=== PATIENT | female | born 1950 | race Caucasian/White ===

== ENCOUNTER 2017-03-09 14:42 | Emergency (ER) | payer MEDICARE ==
[2017-03-09 14:58] VITALS: BP 142/78
--- NOTE | 2017-03-09 15:11 | UC ---
UC General HPI - HPI Summary HPI Summary: complaint of rash on her right arm that started 2 days ago noticed she had 2 bug bites on her arm in the morning last night her arm started to get red swollen and achy denies fever and chills took some benadryl for symptoms last night without relief - History of Current Complaint Chief Complaint: UCSkin Stated Complaint: RT ARM SKIN COMPLAINT Time Seen by Provider: 03/09/17 14:56 Hx Obtained From: Patient - Allergy/Home Medications Allergies/Adverse Reactions: Allergies Allergy/AdvReac Type Severity Reaction Status Date / Time No Known Allergies Allergy Verified 03/09/17 14:58 Home Medications: Home Medications Ascorbic Acid TAB* [Vitamin C TAB*] 500 mg PO DAILY 03/09/17 [History Confirmed 03/09/17] Atorvastatin* [Lipitor 40 MG*] 40 mg PO 1700 03/09/17 [History Confirmed ] Calcium 500 mg PO DAILY 03/09/17 [History Confirmed 03/09/17] Cholecalciferol [Vitamin D] 1,000 unit PO DAILY 03/09/17 [History Confirmed ] Cyanocobalamin [Vitamin B-12] 100 mcg PO DAILY 03/09/17 [History Confirmed 03/09] Magnesium 250 mg PO DAILY 03/09/17 [History Confirmed 03/09/17] Multiple Vitamin [Multiple Vitamins] 1 tab PO DAILY 03/09/17 [History Confirmed 03/09/17] Webster-3 Fatty Acids [Fish Oil] 1,000 mg PO DAILY 03/09/17 [History Confirmed ] PMH/Surg Hx/FS Hx/Imm Hx Previously Healthy: Yes Endocrine History: Dyslipidemia Cardiovascular History: Hypertension Neurological History: Seizures - Surgical History Surgical History: Yes Surgery Procedure, Year, and Place: RODS IN BOTH FEMURS 09/2013 - Family History Known Family History: Negative: Cardiac Disease, Hypertension, Diabetes - Social History Occupation: Retired Lives: With Family Alcohol Use: Weekly Alcohol Amount: WINE Substance Use Type: None Smoking Status (MU): Never Smoked Tobacco Review of Systems Constitutional: Negative Skin: Rash Eyes: Negative ENT: Negative Respiratory: Negative Cardiovascular: Negative Gastrointestinal: Negative Genitourinary: Negative Motor: Negative Neurovascular: Negative Musculoskeletal: Negative Neurological: Negative Psychological: Negative All Other Systems Reviewed And Are Negative: Yes Physical Exam Triage Information Reviewed: Yes Appearance: No Pain Distress, Well-Nourished Vital Signs: Initial Vital Signs Temp 98.3 F 03/09/17 14:53 Pulse 77 03/09/17 14:53 Resp 14 03/09/17 14:53 BP 142/78 03/09/17 14:53 Pulse Ox 99 03/09/17 14:53 Vital Signs Reviewed: Yes Eyes: Positive: Conjunctiva Clear ENT: Positive: Pharynx normal, TMs normal Neck: Positive: No Lymphadenopathy Respiratory: Positive: Lungs clear, Normal breath sounds, No respiratory distress, No accessory muscle use Cardiovascular: Positive: RRR, No Murmur, Pulses Normal Abdomen Description: Positive: Nontender, Soft Bowel Sounds: Positive: Present Musculoskeletal Exam: Normal Neurological: Positive: Alert Psychological Exam: Normal Skin: Positive: rashes - R forearm with 6x20 cm area of erythema and edema warm to touch Course/Dx - Course Course Of Treatment: exam completed. area of cellulitis marked with marker. d/ t size of area with start on bactrim. discussed s/s of when to seek emergent care and pt states understanding - Differential Dx - Multi-Symptom Differential Diagnoses: Other - cellulitis contact dermatitis Provider Diagnoses: cellulitis Discharge - Discharge Plan Condition: Stable Disposition: HOME Prescriptions: Sulfamethox/Trimethoprim DS* [Bactrim DS 800/160 TAB*] 1 tab PO BID #14 tab Patient Education Materials: Cellulitis (ED) Referrals: Non Staff,Doctor [Primary Care Provider] - Additional Instructions: CELLULITIS What is Cellulitis? Cellulitis is a bacterial infection of the skin and, sometimes, of the tissues beneath the skin. The skin normally has many types of bacteria on it, but intact skin is an effective barrier that keeps bacteria from entering and growing within the body. When there is a break in the skin, bacteria can enter the body and grow there, causing infection. The infection usually affects outer layers of the skin first, and then spreads deeper into body tissues. Cellulitis can affect any area of the body covered by skin, but it is most common on the face or lower part of the legs. Symptoms Might Include: Skin redness that increases in size as the infection spreads Tight, glossy, "stretched" appearance of the skin Pain or tenderness of the area The affected area may be warm or hot to the touch A thin red line (along a vein) from the cellulitis toward the heart Fever Chills, shaking Muscle aches pains Joint stiffness because of swelling around a joint Treatment Recommendations: The healthcare provider may have prescribed an antibiotic medicine. The medicine should be taken until it is completely gone, even if you are feeling better. If you stop taking the medicine early, the infection may not be completely gone, and the medication may not work the next time. If the infection is on your arm or leg, keep it elevated. You may use warm, wet compresses to relieve the pain and help healing. Soak a clean cloth in warm water, wring it out a little, and apply it to the affected site. Leave the soak in place for 15 minutes and repeat often throughout the day. Rest until the fever is gone and the pain and redness have lessened. You may take ibuprofen (Motrin, Advil), or acetaminophen (Tylenol) for pain. These will help ease some of the symptoms but will not cure the infection. Call Your Doctor or Return Here IF: Your fever does not go down with treatment, or it increases to more than 101 F. You are not starting to get better with the treatment within 24 to 36 hours. You have increasing pain, swelling, or chills. You feel drowsy and lethargic, or you have vomiting or diarrhea. You find the redness is spreading or there are red streaks coming from the infected area. The joint or bone under the infected skin becomes painful after the skin has started to heal. You have any new symptoms that worry you. Your blood pressure is elevated. Please contact your primary care provider within 1 -4 weeks for further evaluation.
== END 2017-03-09 15:27 | disposition home or self-care (01) ==
LOC: UCCORT 14:42
DX: L03.113 Cellulitis of right upper limb (principal); E78.5 Hyperlipidemia, unspecified; I10 Essential (primary) hypertension; R56.9 Unspecified convulsions
CPT/HCPCS: 99212; G0463

== ENCOUNTER 2018-01-25 06:37 | Day surgery (SDC) | payer MEDICARE ==
[~2018-01-25 06:37] MED LIST: Buffered Lidocaine 0.9% SYRIN* 5 ML/SYR SYRINGE INTRADERM ONE; Dexamethasone IV* 4 MG/ML 1 ML (4 MG) IV SLOW PU ONE; Metoclopramide IV* 5 MG/ML 2 ML VIAL IV SLOW PU ONE; Metoclopramide IV* 5 MG/ML 2 ML VIAL ONE; Sodium Citrate/Citric Acid* 15 ML UDC ONE; Sodium Citrate/Citric Acid* 15 ML UDC PO ONE
[2018-01-25] MEDS ORDERED: ceFAZolin 2 GM PREMIX (*) 0 GM/0 ML BAG IVPB ONE (06:48)
[2018-01-25] MEDS ORDERED: Dexamethasone IV* 4 MG/ML 1 ML (4 MG) ONE (06:57)
[2018-01-25] MEDS ORDERED: fentaNYL* 50 MCG/ML 2 ML VIAL (100 MCG VIAL) ONE (07:02)
[2018-01-25] MEDS ORDERED: Propofol* 10 MG/ML 20 ML BTL IV PUSH ONE (07:03)
[2018-01-25] MEDS ORDERED: Lidocaine 2% PF * 5 ML VIAL ONE (07:03)
[2018-01-25] MEDS ORDERED: Ketorolac INJ* 30 MG/ML 1 ML VIAL ONE (07:03)
[2018-01-25] MEDS ORDERED: Ondansetron INJ* 2 MG/ML VIAL ONE (07:03)
[2018-01-25] MEDS ORDERED: Midazolam* 1 MG/ML 2 ML VIAL (2 MG) ONE (07:03)
[2018-01-25] MEDS ORDERED: PROCHLORPERAZINE INJ 5 MG/ML 2 ML VIAL IV PRN (07:29)
[2018-01-25] MEDS ORDERED: Scopolamine 1.5 mg* PATCH TRANSDERM PRN (07:29)
[2018-01-25] MEDS ORDERED: Ondansetron INJ* 2 MG/ML VIAL IV PRN (07:29)
[2018-01-25] MEDS ORDERED: oxyCODONE/Acetamin 5/325 MG* TAB PO PRN (07:29)
[2018-01-25] MEDS ORDERED: Naloxone* 0.4 MG/ML 1 ML VIAL IV PRN (07:29)
[2018-01-25] MEDS ORDERED: fentaNYL* 50 MCG/ML 2 ML VIAL (100 MCG VIAL) IV PRN (07:29)
[2018-01-25] MEDS ORDERED: HYDROmorphone INJ* 1 MG/ML CARPUJECT SYRINGE IV PRN (07:29)
[2018-01-25] MEDS ORDERED: Bupivacaine 0.25% SDV* 30 ML ONE (07:33)
[2018-01-25] MEDS ORDERED: Clindamycin 900 MG IVPREMIX(* 900 MG/50 ML SDV IV ONE (07:46)
[2018-01-25] MEDS ORDERED: HYDROmorphone INJ* 1 MG/ML CARPUJECT SYRINGE ONE (08:42)
[2018-01-25] MEDS ORDERED: HYDROcodone/ACETAMIN 5-325 MG* 1 TAB ONE (09:41)
[2018-01-25 10:46] VITALS: BP 127/82
--- NOTE | 2018-01-25 14:31 | OP ---
DATE OF OPERATION: 01/25/18 - [facility] DATE OF : 46 SURGEON: Tristen Claire MD MAINSTREAMING FACILITATOR: SHIRLEY Kim. An team assistant was needed for the procedure to aid in positioning of the arm and retraction. ANESTHESIOLOGIST: Dr. Peña. ANESTHESIA: General. PRE-OP DIAGNOSES: 1. 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 2. Left carpal tunnel syndrome. POST-OP DIAGNOSIS: 1. Left stage 4 basal joint arthritis. 2. Left carpal tunnel syndrome. OPERATIVE PROCEDURES: 1. Left thumb carpometacarpal arthroplasty with trapeziectomy. 2. Distally based split flexor carpi radialis tendon transfer for thumb suspension and tendon interposition. 3. Left carpal tunnel release. INDICATIONS: Sofiya has had progressive disease for quite sometime. I saw her in the office. We talked about her options, she wanted to proceed with surgery. She understands the risks and benefits. ESTIMATED BLOOD LOSS: 2 mL. COMPLICATIONS: None. FINDINGS: As expected. DESCRIPTION OF PROCEDURE: Sofiya was seen in the preoperative holding area. The correct side, site and the procedure were identified. We came back to the operating room. The arm was prepped and draped in the usual fashion. A time- out was performed. I made a 2 to 3 cm longitudinal incision in the standard location for an open carpal tunnel release. Dissection was carried down through palmar fascia and subcutaneous tissue. The transverse carpal ligament was released just off the radial aspect of the hook of the hamate. The release was completed distally and proximally with tenotomy scissors under direct visualization. Once the release was completed in its entirety, we irrigated out the wound. Skin was closed with 4-0 nylon suture. I then made a 2 cm longitudinal incision just dorsal to the first dorsal compartment tendons. Dissection was carried down longitudinally to preserve the traversing sensory nerves. The radial artery was mobilized. The perforating branches were tied off with 4-0 silk tie. Full thickness subperiosteal and capsular flaps were raised off of the trapezium. The scapho-trapezial, the trapeziotrapezoid and the carpometacarpal joints were all visualized. The trapezium was excised with a rongeur in a piecemeal fashion. Once the trapezium was completely excised, I inspected the scaphotrapezoid joint. The cartilage there looked good. I then raised a subperiosteal flap off the dorsal radial thumb metacarpal base. I then used sequentially larger drill bits to make a bone tunnel from the dorsal radial thumb metacarpal base exiting out the palmar ulnar articular surface of the metacarpal base. I then irrigated out the wound and harvested the tendon. I made a 1 cm transverse incision in the distal forearm just proximal to the wrist flexion crease. The FCR sheath was released and the tendon delivered up out of the wound, split, and a 26-gauge wire was passed in the tendon split. I then made two transverse incisions each about 7 or 8 cm proximal to the last. The tendon sheath was released along the entirety of the FCR tendon. A Imani clamp was then used to pull up the 26-gauge wire into each of the proximal wound releasing the tendon in the musculotendinous junction. The split end of the tendon was then delivered down into the thumb base wound with two 26-gauge wires. The split was continued with the tenotomies all the way down to the base of the second metacarpal. The tendon was passed up through the bone tunnel around the intact limb of the tendon. Appropriate tension was set and then 3-0 Ethibond suture was used to secure off limb to the tendon transfer. Two additional [id number] sutures were used to sew intact limb to intact limb. The remainder of the tendon end was rolled up and secured to the ball with a Ethibond suture. It was placed in a neutral position between the base of the metacarpal and the scaphoid. The wound was irrigated out. The capsule was closed with 3-0 Ethibond suture. Skin was closed with 4-0 nylon suture. Wounds were infiltrated with 0.25% plain Marcaine. Wounds were closed with nylon , dressed appropriately and a thumb spica splint was applied. She was woken up and taken to the recovery room in stable condition. [id number]/[facility] #: [id number] [facility] CENTERQuinn
[2018-01-28] MEDS ORDERED: Scopolamine PATCH Remove* 1 NOTE MISC PATCH OFF ONE (07:31)
== END 2018-01-25 10:39 | disposition home or self-care (01) ==
LOC: OREAST 06:37
PROVIDERS: ATTEND Orthopaedic Surgery Hand Surgery
DX: M18.12 Unilateral primary osteoarthritis of first carpometacarpal joint, left hand (principal); G56.02 Carpal tunnel syndrome, left upper limb; I10 Essential (primary) hypertension; G40.909 Epilepsy, unspecified, not intractable, without status epilepticus; K75.9 Inflammatory liver disease, unspecified; Z68.32 Body mass index [BMI] 32.0-32.9, adult
CPT/HCPCS: 88304; 88311; A9270-GY; J0690; J1100; J1170; J1885; J2250; J2405; J2704; J2765; J3010

== ENCOUNTER 2018-09-21 11:40 | Emergency (ER) | payer MEDICARE ==
[2018-09-21 14:32] VITALS: BP 117/70
--- NOTE | 2018-09-21 14:56 | UC ---
FLU HPI - HPI Summary HPI Summary: Pt presents with sudden onset of nasal congestion, fever, chills, body aches, ST , fatigue X 4 days. Pt concerned she has the flu. - History of Current Complaint Chief Complaint: UCGeneralIllness Stated Complaint: SORE THROAT EARS COUGH ACHY Time Seen by Provider: 09/21/18 14:35 Hx Obtained From: Patient ?: No Onset/Duration: Sudden Onset, Lasting Days, Still Present, Worse Since - onset Severity Currently: Moderate Severity Initially: Moderate Pain Intensity: 7 Associated Signs & Symptoms: Positive: Fever, Myalgia, Cough, Sore Throat, Nasal Congestion, Headache Related Hx: Possible Flu/Infectious Exposure - Risk Factors Influenza Risk Factors: Negative - Allergy/Home Medications Allergies/Adverse Reactions: Allergies Allergy/AdvReac Type Severity Reaction Status Date / Time cephalexin [From Keflex] Allergy Rash Verified 01/25/18 07:04 Home Medications: Home Medications D-Methorphan/PE/Acetaminophen [Cold Multi-Symptom Caplet] 1 each PO Q12H [History Confirmed 09/21/18] PMH/Surg Hx/FS Hx/Imm Hx Previously Healthy: Yes - Surgical History Surgical History: Yes Surgery Procedure, Year, and Place: RODS IN BOTH FEMURS 09/2013, [facility]. tonsilectomy as a child. lala knee surgerys - Family History Known Family History: Negative: Cardiac Disease, Hypertension, Diabetes - Social History Occupation: Retired Lives: With Family Alcohol Use: Daily Alcohol Amount: 7-8 per week Substance Use Type: None Smoking Status (MU): Never Smoked Tobacco - Immunization History Most Recent Influenza Vaccination: 2017 Review of Systems All Other Systems Reviewed And Are Negative: Yes Constitutional: Positive: Fever, Chills, Fatigue Skin: Positive: Negative Eyes: Positive: Negative ENT: Positive: Sore Throat, Ear Ache, Nasal Discharge, Sinus Congestion, Sinus Pain/Tenderness Respiratory: Positive: Cough Cardiovascular: Positive: Negative Gastrointestinal: Positive: Negative Genitourinary: Positive: Negative Motor: Positive: Negative Neurovascular: Positive: Negative Musculoskeletal: Positive: Myalgia Neurological: Positive: Headache Psychological: Positive: Negative Is Patient Immunocompromised?: No Physical Exam Triage Information Reviewed: Yes Appearance: Ill-Appearing Vital Signs: Initial Vital Signs Temp 99.4 F 09/21/18 14:26 Pulse 97 09/21/18 14:26 Resp 19 12/28/18 14:26 BP 117/70 09/21/18 14:26 Pulse Ox 97 09/21/18 14:26 Vital Signs Reviewed: Yes Eye Exam: Normal ENT: Positive: Nasal congestion, Sinus tenderness Dental Exam: Normal Neck exam: Normal Respiratory Exam: Normal Cardiovascular Exam: Normal Musculoskeletal Exam: Normal Neurological Exam: Normal Psychological Exam: Normal Skin Exam: Normal Diagnostics - Laboratory Diagnostic Studies Completed/Ordered: rapid flu: negative Flu Course/Dx - Differential Dx/Diagnosis Differential Diagnosis/HQI/PQRI: Influenza, Upper Respiratory Infection Provider Diagnosis: Sinusitis Discharge - Sign-Out/Discharge Documenting (check all that apply): Patient Departure All imaging exams completed and their final reports reviewed: No Studies - Discharge Plan Condition: Stable Disposition: HOME Prescriptions: Azithromycin TAB* [Zithromax TAB (Z-CHIDI) 250 mg #6 tabs] 2 tab PO .TODAY, THEN 1 DAILY #1 chidi Patient Education Materials: Sinusitis (ED) Referrals: Cecille WARD,Eduardo Mancuso [Primary Care Provider] - If Needed - Billing Disposition and Condition Condition: STABLE Disposition: Home
== END 2018-09-21 15:01 | disposition home or self-care (01) ==
LOC: UCCORT 11:40
DX: J32.9 Chronic sinusitis, unspecified (principal); Z88.1 Allergy status to other antibiotic agents
CPT/HCPCS: 99212; G0463